=== PATIENT | male | born 1980 | race Caucasian/White ===

== ENCOUNTER 2018-06-20 12:06 | Emergency (ER) | payer BC ==
[2018-06-20 13:47] VITALS: BP 133/82
[2018-06-20] MEDS ORDERED: Fluorescein Sodium TOPICAL* 1 MG TEST STRIP OPHTHALMIC ONE (14:01)
--- NOTE | 2018-06-25 23:17 | UC ---
Eye Complaint HPI - HPI Summary HPI Summary: 38 year old male with no PMH, no medication presents with red eye since 2017. Patient was woodworking over weekend but denies FB, dust, irritation. states redness began at inner portion of eye and has progressed over wilmer superior part to the outer part of the eye. Became mildly painful with pressure sensation behind eye over past 24 hours no severe pain, floaters, drainage, itching, photophobia. no prior eye complaints. - History of Current Complaint Chief Complaint: UCEye Stated Complaint: RT EYE CONCERN-RED Time Seen by Provider: 06/20/18 13:47 Hx Obtained From: Patient Onset/Duration: Sudden Onset, Lasting Days Timing: Constant Severity Currently: Mild Pain Intensity: 0 Pain Scale Used: 0-10 Numeric Location of Injury: Conjunctiva - Allergies/Home Medications Allergies/Adverse Reactions: Allergies Allergy/AdvReac Type Severity Reaction Status Date / Time shellfish derived Allergy Anaphylatic Verified 06/20/18 13:44 Shock Home Medications: Home Medications NK [No Home Medications Reported] 06/20/18 [History Confirmed 06/20/18] PMH/Surg Hx/FS Hx/Imm Hx Previously Healthy: Yes Other History Of: Negative For: Anticoagulant Therapy - Surgical History Surgical History: Yes Surgery Procedure, Year, and Place: LASIK, 2004, [place] - Family History Known Family History: Positive: None - Social History Alcohol Use: Occasionally Substance Use Type: None Smoking Status (MU): Never Smoked Tobacco - Immunization History Most Recent Influenza Vaccination: Not the 2014/2015 Season Review of Systems All Other Systems Reviewed And Are Negative: Yes Eyes: Positive: Eye Redness Is Patient Immunocompromised?: Yes Physical Exam Triage Information Reviewed: Yes Appearance: Well-Appearing, No Pain Distress, Well-Nourished Vital Signs: Initial Vital Signs Temp 98 F 06/20/18 13:43 Pulse 64 06/20/18 13:43 Resp 16 06/20/18 13:43 BP 133/82 06/20/18 13:43 Pulse Ox 98 06/20/18 13:43 Vital Signs Reviewed: Yes Eyes: Positive: Other: - subconjunctival hemmorage over 9 oclock to 3 oclock with no blood pooling behind iris, no cloudy iris, no inflammation noted. EMOI , PERRLA, fundoscopic exam WNLs, no Pain with palpation/ EMOI/ light testing. No tonometer available. fluor stain negative. ENT: Positive: Hearing grossly normal Neurological Exam: Normal Psychological Exam: Normal Skin Exam: Normal Skin: Positive: Other - no stye, hordeolum seen no drainage from lids Eye Complaint Course/Dx - Course Course Of Treatment: Ophthamologist surgical product sales consultant consulted, believed self limited subconjunctival hemmorage, patient to follow up within 2-3 days if no improvement of worsening of symptoms. - Differential Dx/Diagnosis Differential Diagnosis/HQI/PQRI: Conjunctivitis Provider Diagnosis: Subconjunctival hemorrhage of right eye Discharge - Sign-Out/Discharge Documenting (check all that apply): Patient Departure All imaging exams completed and their final reports reviewed: No Studies - Discharge Plan Condition: Good Disposition: HOME Patient Education Materials: Subconjunctival Hemorrhage (ED) Referrals: Sy Hernandez MD [Medical Doctor] - Brigitte Davalos MD [Primary Care Provider] - Additional Instructions: - Avoid ibuprofen, alleve, motrin until symptoms clear - Call DR. Hernandez with increased symptoms, no resolution within 2-3 days - Billing Disposition and Condition Condition: GOOD Disposition: Home
== END 2018-06-20 15:11 | disposition home or self-care (01) ==
LOC: UCCORT 12:06
DX: H11.31 Conjunctival hemorrhage, right eye (principal); Z91.013 Allergy to seafood
CPT/HCPCS: 99212; A9270-GY; G0463